=== PATIENT | male | born 1945 | race Caucasian/White ===

== ENCOUNTER 2023-06-02 06:30 | Day surgery (SDC) | payer MEDICARE, SELFPAY ==
--- NOTE | 2023-05-30 13:38 | PTCARENOTE ---
Patients procedure to be under neurolept anesth- patient with + cardiac history, Dr. Powell reviewed patients med record- EKG not required.
[2023-06-02] VITALS (10 sets, daily range): BP systolic 93–148; BP diastolic 41–84; BMI 42.2
[2023-06-02 10:50] LABS: Glucose - Point of Care 148 mg/dl (70-99)
[2023-06-02] MEDS: NORMOSOL-R 1000 IV (11:00)
[2023-06-02] MEDS: TYLENOL 1000 MG PO (11:00)
--- NOTE | 2023-06-02 11:43 | W.SUR.PREOP ---
Pre-Operative Surgical Note
-
I have examined this patient prior to the performance of the scheduled procedure.
The patient's condition is unchanged from the time of the current History and
Physical and the patient is able to undergo the scheduled procedure.
--- NOTE | 2023-06-02 13:08 | W.IMMPOSTOP ---
Addendum entered and electronically signed by Smith Barrera MD 06/02/23 13:17:
#[id number]
Original Note:
Surgical Immed Post Op Note
-
Primary Surgeon: Holly
Assisting Surgeon: OBEY [place] student
Pre-op Diagnosis: Sebaceous cyst with chronic sinus tract
Post-op Diagnosis: Sebaceous cyst with chronic sinus tract
Procedure Performed: Excision sebaceous cyst/sinus tract with multilayer closure; 9 cm x 2.5cm skin defect
Anesthesia Type: Monitored sedation anesthetic care with incisional field block utilizing 1% lidocaine mixed with quarter percent Marcaine
Specimen / Cultures: Sebaceous cyst with associated sinus tract
Estimated Blood Loss: 24 mL
Complications: None immediate
Operative Findings: Large chronic sebaceous cyst. Cyst and overlying dermis fully excised. Closure of Romain's layer with 3-0 Vicryl. Skin closure with locking running continuous 2-0 nylon suture. No excessive bleeding or oozing.
Plan: Discharge home today. Resume Coumadin this evening. Resume Lovenox shots tomorrow a.m. as a bridge to therapeutic Coumadin.
Updated patient's postop via phone call
[2023-06-02 13:12] LABS: Glucose - Point of Care 148 mg/dl (70-99)
== END 2023-06-02 15:15 | disposition home or self-care (01) ==
LOC: SDS 06:30
PROVIDERS: ATTENDING PHYSICIAN Surgery
DX: L72.0 Epidermal cyst (principal); L98.9 Disorder of the skin and subcutaneous tissue, unspecified; L72.3 Sebaceous cyst
CPT/HCPCS: 21931; 88304; 82962; 85610

== ENCOUNTER → 2023-06-29 09:54 | Outpatient (REF) | payer MEDICARE, SELFPAY ==
[2023-06-29 12:45] LABS: % Basophils 0.8 % (0-2); % Eosinophils 3.1 % (0-6); % Immature Granulocytes 0.3 % (0-0.5); % Lymphocytes 40.6 % (20.5-51.1); % Monocytes 8.8 % (1.7-9.3); % Neutrophils 46.4 % (42.2-75.2); Absolute Basophils 0.1 10^3/uL (0-0.2); Absolute Eosinophils 0.3 10^3/uL (0-0.7); Absolute Lymphocytes 3.8 10^3/uL (1.2-3.4); Absolute Monocytes 0.8 10^3/uL (0.1-0.6); Absolute Neutrophils 4.4 10^3/uL (1.4-6.5); Hematocrit 41.8 % (39.0-52.0); Hemoglobin 13.3 g/dL (13.0-18.0); Mean Corp Hgb Conc. 31.8 g/dL (33.0-37.0); Mean Corpuscular Hgb 27.3 pg (27.0-31.0); Mean Corpuscular Volume 85.8 fL (80.0-94.0); Nucleated Red Blood Cells % 0 % (-); Platelet Count 235 10^3/uL (130-400); Red Blood Cell Count 4.87 10^6/uL (4.70-6.10); Red Cell Dist. Width 15.6 % (11.5-14.5); White Blood Cell Count 9.4 10^3/uL (4.8-10.8)
[2023-06-29 13:02] LABS: Total Iron Binding Capacity 333 ug/dl (261-462)
[2023-06-29 13:07] LABS: Iron 81 ug/dl (49-181); Percent Saturation 24 % (20-50)
== END ==
LOC: HWLAB 09:54
PROVIDERS: ATTENDING PHYSICIAN Internal Medicine Hematology & Oncology; FAMILY PHYSICIAN Internal Medicine
DX: D50.9 Iron deficiency anemia, unspecified (principal); D50.0 Iron deficiency anemia secondary to blood loss (chronic)
CPT/HCPCS: 36415; 82728; 83540; 83550; 85025

== ENCOUNTER → 2023-07-05 | Outpatient (REF) | payer MEDICARE, SELFPAY | LOC: DHSLP | PROVIDERS: ATTENDING PHYSICIAN Internal Medicine; FAMILY PHYSICIAN Internal Medicine | DX: G47.33 Obstructive sleep apnea (adult) (pediatric) (principal); G47.61 Periodic limb movement disorder | CPT/HCPCS: 95811 ==

== ENCOUNTER → 2023-09-22 12:18 | Outpatient (REF) | payer MEDICARE, SELFPAY ==
[2023-09-22 15:58] LABS: % Basophils 0.8 % (0-2); % Eosinophils 2.9 % (0-6); % Immature Granulocytes 0.3 % (0-0.5); % Lymphocytes 40.4 % (20.5-51.1); % Monocytes 9.9 % (1.7-9.3); % Neutrophils 45.7 % (42.2-75.2); Absolute Basophils 0.1 10^3/uL (0-0.2); Absolute Eosinophils 0.3 10^3/uL (0-0.7); Absolute Lymphocytes 4.4 10^3/uL (1.2-3.4); Absolute Monocytes 1.1 10^3/uL (0.1-0.6); Hematocrit 39.2 % (39.0-52.0); Hemoglobin 12.8 g/dL (13.0-18.0); Mean Corp Hgb Conc. 32.7 g/dL (33.0-37.0); Mean Corpuscular Hgb 27.8 pg (27.0-31.0); Mean Platelet Volume 10.7 fL (7.4-10.4); Nucleated Red Blood Cells % 0 % (-); Platelet Count 240 10^3/uL (130-400); Red Blood Cell Count 4.61 10^6/uL (4.70-6.10); Red Cell Dist. Width 14.7 % (11.5-14.5); White Blood Cell Count 10.9 10^3/uL (4.8-10.8)
[2023-09-22 16:16] LABS: ALT (SGPT) 27 U/L (0-50); AST (SGOT) 40 U/L (17-59); Albumin 4.4 g/dl (3.5-5.0); Alkaline Phosphatase 99 U/L (38-126); Blood Urea Nitrogen 29 mg/dl (9-20); Calcium 9.4 mg/dl (8.4-10.2); Carbon Dioxide 25 mmol/L (22-30); Chloride 104 mmol/L (98-107); Glucose 114 mg/dl (70-99); HDL Cholesterol 46 mg/dl; LDL Cholesterol, Calculated 40 mg/dl; Potassium 4.1 mmol/L (3.5-5.1); Sodium 140 mmol/L (135-145); Total Bilirubin 0.7 mg/dl (0.2-1.3); Total Cholesterol 130 mg/dl (50-199); Total Protein 7.3 g/dl (6.3-8.2); Triglyceride 221 mg/dl (10-149); Very Low Density Lipoprotein 44 mg/dl (0-30); eGFR 47.06
[2023-09-22 16:46] LABS: TSH Reflex To Free T4 3.64 uIU/ml (0.47-4.68)
[2023-09-23 11:05] LABS: Glycohemoglobin (HgbA1c) 8.3 % (4.0-5.6)
== END ==
LOC: HWLAB 12:18
PROVIDERS: ATTENDING PHYSICIAN Internal Medicine
DX: E11.621 Type 2 diabetes mellitus with foot ulcer (principal); I10 Essential (primary) hypertension; D63.8 Anemia in other chronic diseases classified elsewhere; Z12.5 Encounter for screening for malignant neoplasm of prostate
CPT/HCPCS: 36415; 80053; 80061; 83036; 84443; 85025; G0103

== ENCOUNTER → 2023-11-11 08:00 | Outpatient (REF) | payer MEDICARE, SELFPAY ==
[2023-11-11 08:50] LABS: % Basophils 0.7 % (0-2); % Eosinophils 2.6 % (0-6); % Immature Granulocytes 0.4 % (0-0.5); % Lymphocytes 39.4 % (20.5-51.1); % Monocytes 9.3 % (1.7-9.3); % Neutrophils 47.6 % (42.2-75.2); Absolute Basophils 0.1 10^3/uL (0-0.2); Absolute Eosinophils 0.3 10^3/uL (0-0.7); Absolute Lymphocytes 4.4 10^3/uL (1.2-3.4); Absolute Neutrophils 5.3 10^3/uL (1.4-6.5); Hematocrit 38.2 % (39.0-52.0); Hemoglobin 12.5 g/dL (13.0-18.0); Mean Corp Hgb Conc. 32.7 g/dL (33.0-37.0); Mean Corpuscular Volume 85.7 fL (80.0-94.0); Mean Platelet Volume 10.4 fL (7.4-10.4); Nucleated Red Blood Cells % 0 % (-); Platelet Count 230 10^3/uL (130-400); Red Blood Cell Count 4.46 10^6/uL (4.70-6.10); Red Cell Dist. Width 14.5 % (11.5-14.5); White Blood Cell Count 11.2 10^3/uL (4.8-10.8)
[2023-11-11 09:09] LABS: Iron 69 ug/dl (49-181)
[2023-11-11 09:19] LABS: Percent Saturation 21 % (20-50); Total Iron Binding Capacity 316 ug/dl (261-462)
== END ==
LOC: REG 08:00
PROVIDERS: ATTENDING PHYSICIAN Internal Medicine Hematology & Oncology; FAMILY PHYSICIAN Internal Medicine
DX: D50.9 Iron deficiency anemia, unspecified (principal); D50.0 Iron deficiency anemia secondary to blood loss (chronic)
CPT/HCPCS: 36415; 82728; 83540; 83550; 85025

== ENCOUNTER → 2024-01-29 14:16 | Outpatient (REF) | payer MEDICARE, SELFPAY | LOC: HWRAD 14:16 | PROVIDERS: ATTENDING PHYSICIAN Nurse Practitioner Family; FAMILY PHYSICIAN Internal Medicine | DX: R06.09 Other forms of dyspnea (principal); J98.4 Other disorders of lung | CPT/HCPCS: 71046 ==

== ENCOUNTER → 2024-05-23 11:32 | Outpatient (REF) | payer MEDICARE, SELFPAY ==
[2024-05-23 16:26] LABS: % Basophils 0.9 % (0-2); % Eosinophils 1.8 % (0-6); % Immature Granulocytes 0.4 % (0-0.5); % Lymphocytes 30.8 % (20.5-51.1); % Neutrophils 58.1 % (42.2-75.2); Absolute Basophils 0.1 10^3/uL (0-0.2); Absolute Eosinophils 0.3 10^3/uL (0-0.7); Absolute Immature Granulocytes 0.1 10^3/uL (0-0.05); Absolute Lymphocytes 4.3 10^3/uL (1.2-3.4); Absolute Monocytes 1.1 10^3/uL (0.1-0.6); Absolute Neutrophils 8.2 10^3/uL (1.4-6.5); Hematocrit 41.5 % (39.0-52.0); Hemoglobin 13.2 g/dL (13.0-18.0); Mean Corp Hgb Conc. 31.8 g/dL (33.0-37.0); Mean Corpuscular Hgb 27.2 pg (27.0-31.0); Mean Corpuscular Volume 85.6 fL (80.0-94.0); Nucleated Red Blood Cells % 0 % (-); Platelet Count 267 10^3/uL (130-400); Red Blood Cell Count 4.85 10^6/uL (4.70-6.10); Red Cell Dist. Width 14.8 % (11.5-14.5); White Blood Cell Count 14.1 10^3/uL (4.8-10.8)
[2024-05-23 16:36] LABS: ALT (SGPT) 41 U/L (0-50); AST (SGOT) 43 U/L (17-59); Albumin 4.7 g/dl (3.5-5.0); Alkaline Phosphatase 114 U/L (38-126); Blood Urea Nitrogen 25 mg/dl (9-20); Calcium 9.6 mg/dl (8.4-10.2); Carbon Dioxide 27 mmol/L (22-30); Chloride 99 mmol/L (98-107); Glucose 179 mg/dl (70-99); HDL Cholesterol 37 mg/dl; Iron 78 ug/dl (49-181); Potassium 4.5 mmol/L (3.5-5.1); Sodium 138 mmol/L (135-145); Total Bilirubin 0.9 mg/dl (0.2-1.3); Total Cholesterol 190 mg/dl (50-199); Total Protein 7.5 g/dl (6.3-8.2); eGFR 43.29
[2024-05-23 16:37] LABS: LDL Cholesterol, Calculated 63 mg/dl; Triglyceride 451 mg/dl (10-149); Very Low Density Lipoprotein 90 mg/dl (0-30)
[2024-05-23 16:45] LABS: Percent Saturation 22 % (20-50); Total Iron Binding Capacity 353 ug/dl (261-462)
[2024-05-23 17:00] LABS: LDL Cholesterol, Direct < 30 mg/dl
[2024-05-23 17:14] LABS: Ferritin 63.2 ng/ml (17.9-464.0)
[2024-05-24 10:16] LABS: Glycohemoglobin (HgbA1c) 9.4 % (4.0-5.6)
== END ==
LOC: HWLAB 11:32
PROVIDERS: ATTENDING PHYSICIAN Internal Medicine Hematology & Oncology; FAMILY PHYSICIAN Internal Medicine
DX: D50.9 Iron deficiency anemia, unspecified (principal); D50.0 Iron deficiency anemia secondary to blood loss (chronic); E11.9 Type 2 diabetes mellitus without complications
CPT/HCPCS: 36415; 80053; 80061; 82728; 83036; 83540; 83550; 83721; 85025

== ENCOUNTER → 2024-08-06 14:28 | Outpatient (REF) | payer MEDICARE, SELFPAY | LOC: EMG 14:28 | PROVIDERS: ATTENDING PHYSICIAN Orthopaedic Surgery; FAMILY PHYSICIAN Internal Medicine | DX: R20.0 Anesthesia of skin (principal) | CPT/HCPCS: 95886; 95909 ==

== ENCOUNTER → 2024-08-23 10:39 | Outpatient (REF) | payer MEDICARE, SELFPAY ==
[2024-08-23 13:10] LABS: % Basophils 1.1 % (0-2); % Eosinophils 3.7 % (0-6); % Immature Granulocytes 0.2 % (0-0.5); % Monocytes 8.6 % (1.7-9.3); % Neutrophils 41.4 % (42.2-75.2); Absolute Basophils 0.1 10^3/uL (0-0.2); Absolute Eosinophils 0.4 10^3/uL (0-0.7); Absolute Lymphocytes 4.3 10^3/uL (1.2-3.4); Absolute Monocytes 0.8 10^3/uL (0.1-0.6); Absolute Neutrophils 3.9 10^3/uL (1.4-6.5); Hematocrit 39.3 % (39.0-52.0); Hemoglobin 12.4 g/dL (13.0-18.0); Mean Corp Hgb Conc. 31.6 g/dL (33.0-37.0); Mean Corpuscular Hgb 27.3 pg (27.0-31.0); Mean Corpuscular Volume 86.6 fL (80.0-94.0); Mean Platelet Volume 10.8 fL (7.4-10.4); Nucleated Red Blood Cells % 0 % (-); Platelet Count 257 10^3/uL (130-400); Red Blood Cell Count 4.54 10^6/uL (4.70-6.10); Red Cell Dist. Width 14.4 % (11.5-14.5); White Blood Cell Count 9.5 10^3/uL (4.8-10.8)
[2024-08-23 13:22] LABS: ALT (SGPT) 33 U/L (0-50); AST (SGOT) 45 U/L (17-59); Alkaline Phosphatase 87 U/L (38-126); Blood Urea Nitrogen 18 mg/dl (9-20); Calcium 9.1 mg/dl (8.4-10.2); Carbon Dioxide 27 mmol/L (22-30); Chloride 107 mmol/L (98-107); Glucose 151 mg/dl (70-99); HDL Cholesterol 38 mg/dl; Iron 68 ug/dl (49-181); LDL Cholesterol, Calculated 34 mg/dl; Sodium 142 mmol/L (135-145); Total Bilirubin 0.7 mg/dl (0.2-1.3); Total Cholesterol 134 mg/dl (50-199); Total Protein 7.1 g/dl (6.3-8.2); Triglyceride 311 mg/dl (10-149); Very Low Density Lipoprotein 62 mg/dl (0-30); eGFR 55.53
[2024-08-23 13:31] LABS: Percent Saturation 19 % (20-50); Total Iron Binding Capacity 357 ug/dl (261-462)
[2024-08-23 14:36] LABS: Glycohemoglobin (HgbA1c) 9.1 % (4.0-5.6)
== END ==
LOC: HWLAB 10:39
PROVIDERS: ATTENDING PHYSICIAN Internal Medicine Hematology & Oncology; FAMILY PHYSICIAN Internal Medicine
DX: E11.9 Type 2 diabetes mellitus without complications (principal); I10 Essential (primary) hypertension; E78.5 Hyperlipidemia, unspecified; D50.9 Iron deficiency anemia, unspecified; D50.0 Iron deficiency anemia secondary to blood loss (chronic)
CPT/HCPCS: 36415; 80053; 80061; 82728; 83036; 83540; 83550; 85025

== ENCOUNTER → 2024-09-09 16:05 | Outpatient (REF) | payer MEDICARE, SELFPAY ==
[2024-09-09 13:45] LABS: % Eosinophils 2.3 % (0-6); % Immature Granulocytes 0.1 % (0-0.5); % Lymphocytes 37.2 % (20.5-51.1); % Neutrophils 49.4 % (42.2-75.2); Absolute Basophils 0.1 10^3/uL (0-0.2); Absolute Eosinophils 0.2 10^3/uL (0-0.7); Absolute Monocytes 0.8 10^3/uL (0.1-0.6); Hematocrit 37.9 % (39.0-52.0); Hemoglobin 12.3 g/dL (13.0-18.0); Mean Corp Hgb Conc. 32.5 g/dL (33.0-37.0); Mean Corpuscular Hgb 27.7 pg (27.0-31.0); Mean Corpuscular Volume 85.4 fL (80.0-94.0); Platelet Count 220 10^3/uL (130-400); Red Blood Cell Count 4.44 10^6/uL (4.70-6.10); Red Cell Dist. Width 13.9 % (11.5-14.5); White Blood Cell Count 8.1 10^3/uL (4.8-10.8)
== END ==
LOC: OIDL 16:05
PROVIDERS: ATTENDING PHYSICIAN Internal Medicine Hematology & Oncology
DX: D50.9 Iron deficiency anemia, unspecified (principal)
CPT/HCPCS: 85025

== ENCOUNTER → 2024-09-10 13:27 | Outpatient (REF) | payer MEDICARE, SELFPAY | LOC: SDSPAT 13:27 | PROVIDERS: ATTENDING PHYSICIAN Orthopaedic Surgery; FAMILY PHYSICIAN Internal Medicine | DX: G56.02 Carpal tunnel syndrome, left upper limb (principal) | CPT/HCPCS: 36415; 93005 ==

== ENCOUNTER → 2024-11-25 13:21 | Outpatient (REF) | payer MEDICARE, SELFPAY ==
[2024-11-25 16:21] LABS: Hematocrit 40.5 % (39.0-52.0); Hemoglobin 12.5 g/dL (13.0-18.0); Mean Corp Hgb Conc. 30.9 g/dL (33.0-37.0); Mean Corpuscular Volume 87.3 fL (80.0-94.0); Nucleated Red Blood Cells % 0 % (-); Platelet Count 239 10^3/uL (130-400); Red Cell Dist. Width 15.2 % (11.5-14.5)
[2024-11-25 16:30] LABS: ALT (SGPT) 33 U/L (0-50); AST (SGOT) 41 U/L (17-59); Albumin 4.2 g/dl (3.5-5.0); Alkaline Phosphatase 101 U/L (38-126); Blood Urea Nitrogen 22 mg/dl (9-20); Calcium 9.0 mg/dl (8.4-10.2); Carbon Dioxide 26 mmol/L (22-30); Chloride 104 mmol/L (98-107); Glucose 191 mg/dl (70-99); HDL Cholesterol 43 mg/dl; Iron 93 ug/dl (49-181); LDL Cholesterol, Calculated 50 mg/dl; Potassium 4.5 mmol/L (3.5-5.1); Sodium 138 mmol/L (135-145); Total Protein 7.1 g/dl (6.3-8.2); Very Low Density Lipoprotein 63 mg/dl (0-30); eGFR 43.02
[2024-11-25 16:40] LABS: Total Iron Binding Capacity 320 ug/dl (261-462)
[2024-11-25 16:48] LABS: Microalb - Urine Creatinine 195.600 mg/dl
[2024-11-25 16:54] LABS: Microalbumin, Random Urine 2.1 mg/dl (0.6-1.7)
[2024-11-25 17:13] LABS: Ferritin 69.4 ng/ml (17.9-464.0)
[2024-11-26 08:41] LABS: Glycohemoglobin (HgbA1c) 9.3 % (4.0-5.6)
== END ==
LOC: HWLAB 13:21
PROVIDERS: ATTENDING PHYSICIAN Internal Medicine Hematology & Oncology; FAMILY PHYSICIAN Internal Medicine
DX: E11.621 Type 2 diabetes mellitus with foot ulcer (principal); I63.9 Cerebral infarction, unspecified; I50.32 Chronic diastolic (congestive) heart failure; Z79.4 Long term (current) use of insulin; E66.01 Morbid (severe) obesity due to excess calories; I10 Essential (primary) hypertension; I25.10 Atherosclerotic heart disease of native coronary artery without angina pectoris; N18.31 Chronic kidney disease, stage 3a; D50.9 Iron deficiency anemia, unspecified; D50.0 Iron deficiency anemia secondary to blood loss (chronic)
CPT/HCPCS: 36415; 80053; 80061; 82043; 82570; 82728; 83036; 83540; 83550; 85025

== ENCOUNTER → 2024-12-30 09:15 | Outpatient (REF) | payer MEDICARE, SELFPAY | LOC: RST 09:15 | PROVIDERS: ATTENDING PHYSICIAN Student in an Organized Health Care Education/Training Program; FAMILY PHYSICIAN Internal Medicine | DX: R13.10 Dysphagia, unspecified (principal) | CPT/HCPCS: 74230; 74246; 92611 ==